=== PATIENT | male | born 1970 | race Hispanic/Latino ===

== ENCOUNTER → 2017-08-03 | Outpatient (CLI) | payer OTHER ==
[~2017-08-03] MED LIST: ACET-66 PO; AMOX500T2 PO; ESCI10TA PO; TAMS0.4C32 PO
== END | disposition home or self-care (01) ==
LOC: RAH 13:08
PROVIDERS: ATTEND Family Medicine
DX: M48.07 Spinal stenosis, lumbosacral region (principal); M51.27 Other intervertebral disc displacement, lumbosacral region
CPT/HCPCS: 72148

== ENCOUNTER 2017-10-12 06:24 | Day surgery (SDC) | payer OTHER ==
[2017-10-06 09:57] VITALS: BP 122/71
[2017-10-12] VITALS (27 sets, daily range): BP systolic 108–151; BP diastolic 63–90
[~2017-10-12] VITALS: Ht 170.2 cm; Wt 96.8 kg
[~2017-10-12 06:24] MED LIST changes: -ACET-66 PO; -AMOX500T2 PO; -TAMS0.4C32 PO
[2017-10-12] MEDS ORDERED: LACTATED RINGERS 1000ML 1,000 ML IV ONE (07:01)
[2017-10-12] MEDS ORDERED: LIDOCAINE HCL/EPINEPHRINE 50 ML VIAL IJ ONE (07:13)
[2017-10-12] MEDS ORDERED: BUPIVACAINE/PF 0.25% 10ML VIAL IJ ONE (07:14)
[2017-10-12] MEDS ORDERED: BACITRACIN 28.4 GM OINT TP ONE (07:14)
[2017-10-12] MEDS ORDERED: MIDAZOLAM HCL 1 MG/ML 2ML VIAL ONE ×2 (07:48→07:59)
[2017-10-12] MEDS ORDERED: LIDOCAINE PF 2% 5ML ABBOJECT ONE (07:59)
[2017-10-12] MEDS ORDERED: GLYCOPYRROLATE 0.2 MG/ML 5 ML VIAL ONE ×2 (07:59→08:46)
[2017-10-12] MEDS ORDERED: DEXAMETHASONE SOD PHOSPHATE 10MG/ML 1ML VIAL ONE ×2 (07:59→08:46)
[2017-10-12] MEDS ORDERED: PROPOFOL 10 MG/ML 20ML VIAL IV ONE ×2 (07:59→08:21)
[2017-10-12] MEDS ORDERED: OXYMETAZOLINE HCL SPRAY 15 ML BOTTLE ONE (08:04)
[2017-10-12] MEDS ORDERED: ROCURONIUM BROMIDE 10MG/1ML 5ML VL ONE (08:05)
[2017-10-12] MEDS ORDERED: FENTANYL CITRATE PF 50 MCG/1 ML 5ML AMP IV ONE (08:11)
[2017-10-12] MEDS ORDERED: NEOSTIGMINE METHYLSULFATE 1MG/ML IV ONE (08:46)
[2017-10-12] MEDS ORDERED: ONDANSETRON HCL MDV 20ML 2 MG/ML VIAL ONE (08:46)
[2017-10-12] MEDS ORDERED: MEPERIDINE-PF 25 MG/ML SYG ONE (09:20)
[2017-10-12] MEDS ORDERED: MORPHINE SULFATE 4 MG/1ML SYG IV SCH (10:45)
[2017-10-12] MEDS ORDERED: MORPHINE SULFATE 2 MG/ML 1ML SYG IVP SCH (11:00)
[2017-10-12] MEDS ORDERED: ACET-66 PO ×2 (11:17)
[2017-10-12] MEDS ORDERED: AMOX500T2 PO ×2 (11:18)
== END 2017-10-12 12:44 | disposition home or self-care (01) ==
LOC: DAH 06:24
PROVIDERS: ATTEND Otolaryngology Plastic Surgery within the Head & Neck
DX: J35.01 Chronic tonsillitis (principal); J34.3 Hypertrophy of nasal turbinates
CPT/HCPCS: 30930; 42821; 88304; A4649; J1030; J1100 ×2; J2001; J2175; J2250 ×2; J2704 ×2; J2710; J3010; J3490 ×4; J7030; J7120

== ENCOUNTER 2017-10-22 10:55 | Emergency (ER) | payer OTHER ==
[~2017-10-22 10:55] MED LIST changes: +ACET-66 PO; +AMOX500T2 PO
[2017-10-22 11:43] LABS: BASOPHILS % (AUTO) 0.7 % (0.0-5.0); EOSINOPHILS % (AUTO) 0.5 % (0.0-8.0); HEMATOCRIT 40.2 % (42-54); LYMPHOCYTES % (AUTO) 16.2 % (21.0-51.0); MEAN CORPUSCULAR HEMOGLOBIN 31.1 pg (27.0-33.0); MEAN CORPUSCULAR HGB CONC 34.9 g/dL (32.0-36.0); MONOCYTES % (AUTO) 9.6 % (3.0-13.0); PLATELET COUNT (AUTO) 304 K/uL (130-400); RED BLOOD CELL COUNT(AUTO) 4.52 MIL/uL (4.50-6.20); RED CELL DISTRIBUTION WIDTH 12.1 % (11.0-15.5); WHITE BLOOD COUNT (AUTO) 7.4 K/uL (4.8-10.8)
[2017-10-22 11:52] LABS: CREATININE 1.2 mg/dL (0.5-1.5); POTASSIUM 3.5 mmol/L (3.5-5.1)
[2017-10-22 11:57] LABS: ALBUMIN 3.8 g/dL (3.5-5.0); BILIRUBIN,DIRECT 0.1 mg/dL (0.0-0.3); BILIRUBIN,TOTAL 0.6 mg/dL (0.2-1.0)
[2017-10-22] MEDS ORDERED: SODIUM CHLORIDE 0.9% 1000ML 1,000 ML IV ONE (12:16)
[2017-10-22] MEDS ORDERED: TAMSULOSIN HCL 0.4 MG CAP.ER.24H ONE (12:46)
[2017-10-22] MEDS ORDERED: KETOROLAC TROMETHAMINE 30MG/ML ONE (12:47)
[2017-10-22 13:07] LABS: APPEARANCE,URINE Clear (CLEAR); BILIRUBIN,URINE Negative (NEGATIVE); COLOR,URINE Yellow (YELLOW); GLUCOSE, URINE (UA) Negative (NEGATIVE); KETONES,URINE Negative (NEGATIVE); LEUKOCYTE ESTERASE ,URINE Negative (NEGATIVE); NITRATE,URINE Negative (NEGATIVE); OCCULT BLOOD,URINE Trace (NEGATIVE); PH,URINE 5.5 (5.0-8.0); PROTEIN,URINE Negative (NEGATIVE); UROBILINOGEN,URINE 0.2 mg/dL (0.2-1.0)
[2017-10-22 13:26] LABS: BACTERIA,URINE Rare /HPF (None Seen); SQUAMOUS EPITHELIAL CELL,UR Rare /HPF (0-2)
[2017-10-25] MEDS ORDERED: TAMS0.4C32 PO (21:58)
== END 2017-10-22 14:03 | disposition home or self-care (01) ==
LOC: EDH 10:55
DX: N13.2 Hydronephrosis with renal and ureteral calculous obstruction (principal); K59.00 Constipation, unspecified; Z98.890 Other specified postprocedural states; Z79.899 Other long term (current) drug therapy
CPT/HCPCS: 36415; 74176; 80048; 80076; 81001; 83690; 85025; 96361; 96374; 99285; J1885; J7030

== ENCOUNTER 2017-10-25 13:35 | Inpatient (IN) | payer OTHER ==
[~2017-10-25] VITALS: Ht 167.6 cm; Wt 92.9 kg
[2017-10-25 14:07] LABS: APPEARANCE,URINE Clear (CLEAR); BILIRUBIN,URINE Negative (NEGATIVE); COLOR,URINE Dark Yellow (YELLOW); GLUCOSE, URINE (UA) Negative (NEGATIVE); KETONES,URINE 40 mg/dL (NEGATIVE); LEUKOCYTE ESTERASE ,URINE Trace (NEGATIVE); NITRATE,URINE Negative (NEGATIVE); OCCULT BLOOD,URINE Trace (NEGATIVE); PROTEIN,URINE Negative (NEGATIVE); UROBILINOGEN,URINE 0.2 mg/dL (0.2-1.0)
[2017-10-25 14:09] LABS: BASOPHILS % (AUTO) 0.2 % (0.0-5.0); EOSINOPHILS % (AUTO) 0.3 % (0.0-8.0); HEMATOCRIT 38.6 % (42-54); LYMPHOCYTES % (AUTO) 10.2 % (21.0-51.0); MEAN CORPUSCULAR HEMOGLOBIN 31.9 pg (27.0-33.0); MEAN CORPUSCULAR HGB CONC 35.9 g/dL (32.0-36.0); MEAN CORPUSCULAR VOLUME 88.7 fL (79-99); MONOCYTES % (AUTO) 5.7 % (3.0-13.0); NEUTROPHILS % (AUTO) 83.6 % (40.0-77.0); NUCLEATED RED BLOOD CELLS 0.1 % (0.0-0.19); PLATELET COUNT (AUTO) 343 K/uL (130-400); RED BLOOD CELL COUNT(AUTO) 4.35 MIL/uL (4.50-6.20); RED CELL DISTRIBUTION WIDTH 12.2 % (11.0-15.5); WHITE BLOOD COUNT (AUTO) 9.4 K/uL (4.8-10.8)
[2017-10-25 14:14] LABS: BACTERIA,URINE Rare /HPF (None Seen); RBC,URINE 0-1 /HPF (0-1); SQUAMOUS EPITHELIAL CELL,UR Rare /HPF (0-2)
[2017-10-25] MEDS ORDERED: ONDANSETRON HCL MDV 20ML 2 MG/ML VIAL ONE (14:16)
[2017-10-25] MEDS ORDERED: SODIUM CHLORIDE 0.9% 1000ML 1,000 ML IV ONE ×2 (14:17→14:53)
[2017-10-25 14:25] LABS: CREATININE 1.4 mg/dL (0.5-1.5); POTASSIUM 3.8 mmol/L (3.5-5.1)
[2017-10-25 14:31] LABS: ALBUMIN 3.8 g/dL (3.5-5.0); BILIRUBIN,TOTAL 0.4 mg/dL (0.2-1.0); TOTAL PROTEIN, SERUM 8.3 g/dL (6.0-8.3)
[2017-10-25] MEDS ORDERED: PROMETHAZINE HCL 25 MG/ML 1ML AMPULE IM ONE (14:53)
[2017-10-25] MEDS ORDERED: FAMOTIDINE 20MG TAB 20 MG TAB ONE (14:53)
[2017-10-25] MEDS ORDERED: KETOROLAC TROMETHAMINE 30MG/ML ONE (14:56)
[2017-10-25 19:20] VITALS: BP 135/87
[2017-10-25] MEDS: DEXTROSE 5 %-0.45 % NACL 1,000 ML IV SCH (20:38)
[2017-10-25] MEDS: ONDANSETRON HCL MDV 20ML 2 MG/ML VIAL IVP PRN (21:52)
[2017-10-25] MEDS: HYDROMORPHONE 1 MG/1 ML AMP IVP PRN (21:53)
[2017-10-25] MEDS ORDERED: TAMS0.4C32 PO ×2 (21:58)
[2017-10-26 00:09] VITALS: BP 126/77
[2017-10-26 03:47] VITALS: BP 122/82
[2017-10-26] MEDS: DEXTROSE 5 %-0.45 % NACL 1,000 ML IV SCH ×2 (04:52→14:40)
[2017-10-26 04:58] LABS: BASOPHILS % (AUTO) 0.2 % (0.0-5.0); EOSINOPHILS % (AUTO) 0.1 % (0.0-8.0); LYMPHOCYTES % (AUTO) 12.6 % (21.0-51.0); MEAN CORPUSCULAR HEMOGLOBIN 30.6 pg (27.0-33.0); MEAN CORPUSCULAR HGB CONC 34.6 g/dL (32.0-36.0); MEAN CORPUSCULAR VOLUME 88.6 fL (79-99); MONOCYTES % (AUTO) 7.2 % (3.0-13.0); NEUTROPHILS % (AUTO) 79.9 % (40.0-77.0); PLATELET COUNT (AUTO) 314 K/uL (130-400); RED BLOOD CELL COUNT(AUTO) 4.18 MIL/uL (4.50-6.20); RED CELL DISTRIBUTION WIDTH 11.8 % (11.0-15.5); WHITE BLOOD COUNT (AUTO) 12.3 K/uL (4.8-10.8)
[2017-10-26 05:09] LABS: ALBUMIN 3.2 g/dL (3.5-5.0); BILIRUBIN,TOTAL 0.2 mg/dL (0.2-1.0); CREATININE 1.2 mg/dL (0.5-1.5); POTASSIUM 4.1 mmol/L (3.5-5.1); TOTAL PROTEIN, SERUM 7.2 g/dL (6.0-8.3)
[2017-10-26 07:36] VITALS: BP 122/81
[2017-10-26] MEDS ORDERED: SODIUM CHLORIDE 0.9% 10 ML VIAL ONE (09:33)
[2017-10-26] MEDS: PANTOPRAZOLE 40 MG/VIAL IVP SCH (09:45)
[2017-10-26] MEDS: ONDANSETRON HCL MDV 20ML 2 MG/ML VIAL IVP PRN ×3 (09:46→20:13)
[2017-10-26 10:56] VITALS: BP 129/72
[2017-10-26] MEDS: HYDROMORPHONE 1 MG/1 ML AMP IVP PRN (15:39)
[2017-10-26 16:25] VITALS: BP 122/78
[2017-10-26 20:00] VITALS: BP 131/84
[2017-10-26] MEDS: CEFTRIAXONE SODIUM 1 GM IVP SCH (20:05)
[2017-10-26] MEDS: KETOROLAC TROMETHAMINE 30MG/ML IV PRN (20:05)
[2017-10-26] MEDS ORDERED: TAMSULOSIN HCL 0.4 MG CAP.ER.24H PO SCH (21:00)
[2017-10-26] MEDS: TAMSULOSIN HCL 0.4 MG CAP.ER.24H PO SCH (21:00)
[2017-10-26] MEDS ORDERED: CEFTRIAXONE SODIUM 1 GM IVP SCH (21:00)
[2017-10-26] MEDS ORDERED: CEFTRIAXONE 1GM/D5W 50ML 50 ML IV SCH (22:00)
[2017-10-27] VITALS (29 sets, daily range): BP systolic 108–139; BP diastolic 59–87
[2017-10-27] MEDS: DEXTROSE 5 %-0.45 % NACL 1,000 ML IV SCH ×3 (02:16→10:31)
[2017-10-27] MEDS: ONDANSETRON HCL MDV 20ML 2 MG/ML VIAL IVP PRN ×4 (02:19→21:54)
[2017-10-27] MEDS: KETOROLAC TROMETHAMINE 30MG/ML IV PRN ×2 (02:19→20:10)
[2017-10-27 05:15] LABS: HEMATOCRIT 36.6 % (42-54); MEAN CORPUSCULAR HEMOGLOBIN 31.2 pg (27.0-33.0); MEAN CORPUSCULAR VOLUME 89.1 fL (79-99); NUCLEATED RED BLOOD CELLS 0.2 % (0.0-0.19); PLATELET COUNT (AUTO) 361 K/uL (130-400); RED CELL DISTRIBUTION WIDTH 12.1 % (11.0-15.5); WHITE BLOOD COUNT (AUTO) 10.3 K/uL (4.8-10.8)
[2017-10-27 05:32] LABS: ALBUMIN 3.1 g/dL (3.5-5.0); BILIRUBIN,TOTAL 0.2 mg/dL (0.2-1.0); CREATININE 1.2 mg/dL (0.5-1.5); POTASSIUM 3.9 mmol/L (3.5-5.1); TOTAL PROTEIN, SERUM 7.3 g/dL (6.0-8.3)
[2017-10-27 05:38] LABS: BAND NEUTROPHILS % (MANUAL) 3 % (0-2); EOSINOPHILS % (MANUAL) 1 % (1-6); LYMPHOCYTES % (MANUAL) 17 % (22-44); MAN.DIFF COMMENT-IMPRESSION MANUAL DIFFERENTIAL; MONOCYTES % (MANUAL) 8 % (2-9); PLATELET MORPHOLOGY COMMENT ADEQUATE; SEGMENTED NEUTROPHILS % 71 % (40-70)
[2017-10-27] MEDS: PANTOPRAZOLE 40 MG/VIAL IVP SCH (10:24)
[2017-10-27] MEDS ORDERED: ALPRAZOLAM 0.5 MG TABLET PO PRN (11:30)
[2017-10-27] MEDS: LORAZEPAM 2 MG/ML 1 ML VIAL IVP PRN ×2 (11:45→21:54)
[2017-10-27] MEDS ORDERED: LACTATED RINGERS 1000ML 1,000 ML IV ONE (12:56)
[2017-10-27] MEDS ORDERED: MIDAZOLAM HCL 1 MG/ML 2ML VIAL ONE ×2 (14:20→15:06)
[2017-10-27] MEDS ORDERED: FENTANYL CITRATE PF 50 MCG/1 ML 2ML VIAL ONE (14:20)
[2017-10-27] MEDS ORDERED: ISOVUE-370 50ML VIAL IV ONE (14:23)
[2017-10-27] MEDS: TAMSULOSIN HCL 0.4 MG CAP.ER.24H PO SCH (20:10)
[2017-10-27] MEDS: CEFTRIAXONE SODIUM 1 GM IVP SCH (20:11)
[2017-10-28 00:05] VITALS: BP 111/66
[2017-10-28 04:25] VITALS: BP 109/64
[2017-10-28 05:31] LABS: HEMATOCRIT 37.8 % (42-54); MEAN CORPUSCULAR HEMOGLOBIN 31.3 pg (27.0-33.0); MEAN CORPUSCULAR HGB CONC 34.9 g/dL (32.0-36.0); MEAN CORPUSCULAR VOLUME 89.6 fL (79-99); PLATELET COUNT (AUTO) 366 K/uL (130-400); RED BLOOD CELL COUNT(AUTO) 4.21 MIL/uL (4.50-6.20); RED CELL DISTRIBUTION WIDTH 12.5 % (11.0-15.5); WHITE BLOOD COUNT (AUTO) 8.7 K/uL (4.8-10.8)
[2017-10-28 05:44] LABS: CREATININE 1.2 mg/dL (0.5-1.5); POTASSIUM 3.7 mmol/L (3.5-5.1)
[2017-10-28 07:53] VITALS: BP 128/75
[2017-10-28] MEDS: DEXTROSE 5 %-0.45 % NACL 1,000 ML IV SCH (08:47)
[2017-10-28] MEDS ORDERED: PANTOPRAZOLE SODIUM 40 MG TABLET.DR PO SCH (09:00)
[2017-10-28] MEDS: ONDANSETRON HCL MDV 20ML 2 MG/ML VIAL IVP PRN (10:21)
[2017-10-28 11:20] VITALS: BP 123/68
== END 2017-10-28 14:19 | disposition home or self-care (01) | DRG 694 ==
LOC: EDH 13:35 → OBSVTOIN 16:20 → EDHIP 16:20 → 4BH 18:35
PROVIDERS: ADMIT Internal Medicine; ATTEND Internal Medicine
PROC: 0T778DZ Dilation of Left Ureter with Intraluminal Device, Via Natural or Artificial Opening Endoscopic (ICD-10-PCS; principal; 2017-10-27 15:09)
PROC: BT1F1ZZ Fluoroscopy of Left Kidney, Ureter and Bladder using Low Osmolar Contrast (ICD-10-PCS; 2017-10-27 15:09)
DX: N20.2 Calculus of kidney with calculus of ureter (principal); E86.0 Dehydration; I10 Essential (primary) hypertension
CPT/HCPCS: 36415; 74176; 74420; 76770; 80048; 80053; 81001; 82360; 83690; 85025; 85027; 88300; 93005; A4218; A4344; A4354; C1758; C1769; C2617; C9113; J0696; J1170; J1885; J2060; J2250; J2550; J3010; J7030; J7042; J7120; Q9967

== ENCOUNTER 2017-12-22 06:00 | Observation (INO) | payer OTHER ==
[2017-12-18 10:42] VITALS: BP 115/76
[2017-12-18 11:27] LABS: HEMATOCRIT 39.4 % (42-54); MEAN CORPUSCULAR HEMOGLOBIN 31.1 pg (27.0-33.0); MEAN CORPUSCULAR HGB CONC 34.7 g/dL (32.0-36.0); MEAN CORPUSCULAR VOLUME 89.7 fL (79-99); NUCLEATED RED BLOOD CELLS 0.1 % (0.0-0.19); PLATELET COUNT (AUTO) 327 K/uL (130-400); RED BLOOD CELL COUNT(AUTO) 4.39 MIL/uL (4.50-6.20); RED CELL DISTRIBUTION WIDTH 12.5 % (11.0-15.5); WHITE BLOOD COUNT (AUTO) 5.9 K/uL (4.8-10.8)
[2017-12-18 11:28] LABS: APPEARANCE,URINE Cloudy (CLEAR); BILIRUBIN,URINE Negative (NEGATIVE); COLOR,URINE Yellow (YELLOW); GLUCOSE, URINE (UA) Negative (NEGATIVE); KETONES,URINE Negative (NEGATIVE); LEUKOCYTE ESTERASE ,URINE Small (NEGATIVE); NITRATE,URINE Negative (NEGATIVE); OCCULT BLOOD,URINE Large (NEGATIVE); PROTEIN,URINE POS 2+ (NEGATIVE); UROBILINOGEN,URINE 0.2 mg/dL (0.2-1.0)
[2017-12-18 11:45] LABS: CREATININE 0.8 mg/dL (0.5-1.5); POTASSIUM 4.3 mmol/L (3.5-5.1)
[2017-12-18 11:50] LABS: INR 0.99 (0.85-1.15); PARTIAL THROMBOPLASTIN TIME 28.6 SEC (26.3-35.5); PROTHROMBIN TIME 10.4 SEC (9.6-11.6)
[2017-12-18 11:55] LABS: BACTERIA,URINE Moderate /HPF (None Seen)
[2017-12-18 11:56] LABS: RBC,URINE 26-50 /HPF (0-1)
[2017-12-22] VITALS (27 sets, daily range): BP systolic 99–139; BP diastolic 33–96
[~2017-12-22] VITALS: Ht 170.2 cm; Wt 93.1 kg
[~2017-12-22 06:00] MED LIST changes: -ACET-66 PO; -AMOX500T2 PO; -ESCI10TA PO; +TAMS0.4C32 PO
[2017-12-22] MEDS ORDERED: LACTATED RINGERS 1000ML 1,000 ML IV ONE (06:21)
[2017-12-22] MEDS: CEFAZOLIN SODIUM 1 GM VIAL ONE ×2 (06:30→07:35)
[2017-12-22] MEDS ORDERED: GLYCOPYRROLATE 0.2 MG/ML 5 ML VIAL ONE (06:59)
[2017-12-22] MEDS ORDERED: ONDANSETRON HCL 4 MG/2 ML VIAL ONE (06:59)
[2017-12-22] MEDS ORDERED: NEOSTIGMINE 5MG/5ML SYR IV ONE (06:59)
[2017-12-22] MEDS ORDERED: LIDOCAINE PF 2% 5ML ABBOJECT ONE ×2 (06:59→07:30)
[2017-12-22] MEDS ORDERED: DEXAMETHASONE SOD PHOSPHATE 10MG/ML 1ML VIAL ONE (06:59)
[2017-12-22] MEDS ORDERED: MIDAZOLAM HCL 1 MG/ML 2ML VIAL ONE (07:00)
[2017-12-22] MEDS ORDERED: FENTANYL CITRATE PF 50 MCG/1 ML 2ML VIAL ONE ×2 (07:00→07:31)
[2017-12-22] MEDS ORDERED: PROPOFOL 10 MG/ML 20ML VIAL IV ONE ×2 (07:00→07:45)
[2017-12-22] MEDS ORDERED: ROCURONIUM BROMIDE 10MG/1ML 5ML VL ONE ×2 (07:02→07:07)
[2017-12-22] MEDS ORDERED: ISOVUE-370 50ML VIAL IV ONE ×2 (07:38→07:58)
[2017-12-22] MEDS ORDERED: CEFAZOLIN SODIUM 1 GM VIAL IVP ONE (08:00)
[2017-12-22] MEDS ORDERED: LACTATED RINGERS 1000ML 1,000 ML IV SCH (08:00)
[2017-12-22] MEDS ORDERED: GENTAMICIN SULFATE 240 MG in SODIUM CHLORIDE 0.9% 100 ML IV ONE (08:00)
[2017-12-22] MEDS: MEPERIDINE-PF 75 MG/ML SYG IM PRN ×2 (10:28→18:04)
[2017-12-22] MEDS ORDERED: SODIUM CHLORIDE 0.9% 1000ML 1,000 ML IV SCH (10:30)
[2017-12-22] MEDS ORDERED: ACETAMINOPHEN 325 MG TAB PO PRN (10:30)
[2017-12-22] MEDS ORDERED: ONDANSETRON HCL 4 MG/2 ML VIAL IVP PRN (10:30)
[2017-12-22] MEDS ORDERED: ACETAMINOPHEN-CODEINE 300/30MG TAB PO PRN (10:30)
[2017-12-22] MEDS ORDERED: CEFAZOLIN SODIUM 1 GM VIAL IVP SCH (16:00)
[2017-12-22] MEDS ORDERED: POLYCITRA PO SCH (17:00)
[2017-12-22] MEDS ORDERED: CITRIC ACID/SODIUM CITRATE 30 ML UDCUP PO ONE (18:20)
== END 2017-12-22 19:20 | disposition home or self-care (01) ==
LOC: DAH 06:00 → DAHIP 06:01 → DAH 06:01 → 4BH 09:21
PROVIDERS: ADMIT Urology; ATTEND Urology
DX: N20.2 Calculus of kidney with calculus of ureter (principal); Z79.899 Other long term (current) drug therapy
CPT/HCPCS: 36415; 52320; 52332; 71046; 74420; 80048; 81001; 82360; 85027; 85610; 85730; 87088; 88300; 93005; 96372; 96374; A4218 ×2; A4358; A4930; C1751; C1758; C1769; C2617; G0378 ×13; J0690 ×2; J1100; J1580; J2001 ×2; J2175 ×2; J2250; J2405; J2704 ×2; J2710; J3010 ×2; J3490 ×3; J7120; Q9967

== ENCOUNTER → 2018-01-04 | Outpatient (CLI) | payer OTHER ==
[~2018-01-04] MED LIST changes: +IOPAMIDOL-370 100 ML VIAL IV ONE
== END | disposition home or self-care (01) ==
LOC: RAH 08:02
PROVIDERS: ATTEND Urology
DX: N13.39 Other hydronephrosis (principal); N13.4 Hydroureter
CPT/HCPCS: 36415; 74400; 82565; 84520; Q9967

== ENCOUNTER → 2019-02-01 | Outpatient (CLI) | payer OTHER ==
[~2019-02-01] MED LIST changes: -IOPAMIDOL-370 100 ML VIAL IV ONE
[2019-02-01 07:53] LABS: BASOPHILS % (AUTO) 0.4 % (0.0-5.0); EOSINOPHILS % (AUTO) 0.9 % (0.0-8.0); HEMATOCRIT 42.1 % (42-54); LYMPHOCYTES % (AUTO) 31.5 % (21.0-51.0); MEAN CORPUSCULAR HEMOGLOBIN 31.4 pg (27.0-33.0); MEAN CORPUSCULAR VOLUME 89.8 fL (79-99); MONOCYTES % (AUTO) 7.6 % (3.0-13.0); NEUTROPHILS % (AUTO) 59.6 % (40.0-77.0); NUCLEATED RED BLOOD CELLS 0.1 % (0.0-0.19); PLATELET COUNT (AUTO) 313 K/uL (130-400); RED BLOOD CELL COUNT(AUTO) 4.69 MIL/uL (4.50-6.20); RED CELL DISTRIBUTION WIDTH 12.5 % (11.0-15.5); WHITE BLOOD COUNT (AUTO) 7.2 K/uL (4.8-10.8)
[2019-02-01 07:58] LABS: HEMOGLOBIN A1C 5.9 % (4.0-6.0)
[2019-02-01 08:31] LABS: ALBUMIN 3.9 g/dL (3.5-5.0); BILIRUBIN,TOTAL 0.4 mg/dL (0.2-1.0); CREATININE 0.8 mg/dL (0.5-1.5); MAGNESIUM 1.8 mg/dL (1.80-2.40); THYROID STIMULATING HORMONE 2.46 uIU/mL (0.36-3.74); TOTAL PROTEIN, SERUM 7.8 g/dL (6.0-8.3)
== END | disposition home or self-care (01) ==
LOC: LAB 07:18
PROVIDERS: ATTEND Family Medicine
DX: E78.5 Hyperlipidemia, unspecified (principal); E03.9 Hypothyroidism, unspecified; R53.83 Other fatigue; R73.09 Other abnormal glucose; E55.9 Vitamin D deficiency, unspecified; E53.8 Deficiency of other specified B group vitamins
CPT/HCPCS: 36415; 80053; 80061; 82306; 82607; 82627; 83036; 83735; 84153; 84402; 84403; 84439; 84443; 84481; 85025; 86376

== ENCOUNTER → 2019-04-19 | Outpatient (CLI) | payer OTHER ==
[2019-04-19 09:53] LABS: BASOPHILS % (AUTO) 0.4 % (0.0-5.0); HEMATOCRIT 39.9 % (42-54); LYMPHOCYTES % (AUTO) 37.8 % (21.0-51.0); MEAN CORPUSCULAR HEMOGLOBIN 31.7 pg (27.0-33.0); MEAN CORPUSCULAR HGB CONC 35.1 g/dL (32.0-36.0); MEAN CORPUSCULAR VOLUME 90.2 fL (79-99); MONOCYTES % (AUTO) 6.7 % (3.0-13.0); NEUTROPHILS % (AUTO) 54.1 % (40.0-77.0); NUCLEATED RED BLOOD CELLS 0.1 % (0.0-0.19); PLATELET COUNT (AUTO) 303 K/uL (130-400); RED BLOOD CELL COUNT(AUTO) 4.42 MIL/uL (4.50-6.20); RED CELL DISTRIBUTION WIDTH 12.5 % (11.0-15.5); WHITE BLOOD COUNT (AUTO) 6.1 K/uL (4.8-10.8)
[2019-04-19 10:26] LABS: HEMOGLOBIN A1C 5.7 % (4.0-6.0)
[2019-04-19 10:49] LABS: ALBUMIN 3.8 g/dL (3.5-5.0); BILIRUBIN,TOTAL 0.2 mg/dL (0.2-1.0); CREATININE 0.8 mg/dL (0.5-1.5); MAGNESIUM 1.8 mg/dL (1.80-2.40); POTASSIUM 3.7 mmol/L (3.5-5.1); THYROID STIMULATING HORMONE 1.02 uIU/mL (0.36-3.74); TOTAL PROTEIN, SERUM 7.6 g/dL (6.0-8.3)
== END | disposition home or self-care (01) ==
LOC: LAB 07:38
PROVIDERS: ATTEND Family Medicine
DX: I10 Essential (primary) hypertension (principal); Z79.899 Other long term (current) drug therapy
CPT/HCPCS: 36415; 80053; 80061; 82306; 82607; 83036; 83735; 84153; 84154; 84402; 84403; 84439; 84443; 84481; 85025; 86376

== ENCOUNTER 2020-01-23 14:56 | Emergency (ER) | payer OTHER | END 2020-01-23 16:33 | disposition home or self-care (01) | LOC: EDH 14:56 | DX: U07.1 COVID-19 (principal); R06.00 Dyspnea, unspecified | CPT/HCPCS: 36415; 71045; 87804 ×2; 99284; U0003 ==

== ENCOUNTER 2020-02-01 12:56 | Emergency (ER) | payer OTHER ==
[2020-02-01] MEDS ORDERED: ACETAMINOPHEN EXTRA STRENGTH 500 MG TABLET ONE (13:11)
[2020-02-01 13:17] LABS: BASOPHILS % (AUTO) 0.1 % (0.0-5.0); HEMATOCRIT 43.5 % (42-54); LYMPHOCYTES % (AUTO) 11.3 % (21.0-51.0); MEAN CORPUSCULAR HEMOGLOBIN 30.2 pg (27.0-33.0); MEAN CORPUSCULAR VOLUME 88.8 fL (79-99); NEUTROPHILS % (AUTO) 82.1 % (40.0-77.0); PLATELET COUNT (AUTO) 258 K/uL (130-400); RED CELL DISTRIBUTION WIDTH 12.1 % (11.0-15.5); WHITE BLOOD COUNT (AUTO) 10.9 K/uL (4.8-10.8)
[2020-02-01 13:48] LABS: POTASSIUM 3.6 mmol/L (3.5-5.1)
[2020-02-01 13:52] LABS: ALBUMIN 3.6 g/dL (3.5-5.0); BILIRUBIN,TOTAL 0.4 mg/dL (0.2-1.0)
[2020-02-01] MEDS ORDERED: DEXAMETHASONE SOD PHOSPHATE 10MG/ML 1ML VIAL ONE (14:32)
[2020-02-01] MEDS ORDERED: ONDANSETRON HCL 4 MG/2 ML VIAL ONE (15:42)
== END 2020-02-01 16:14 | disposition home or self-care (01) ==
LOC: EDH 12:56
DX: U07.1 COVID-19 (principal); J12.89 Other viral pneumonia
CPT/HCPCS: 36415; 71045; 80053; 82550; 82728; 83880; 84484; 85025; 85378; 86140; 87040 ×2; 93005; 96374; 96375; 99285; J1100; J2405

== ENCOUNTER → 2020-05-10 | Outpatient (CLI) | payer OTHER ==
[2020-05-10 14:08] LABS: BASOPHILS % (AUTO) 0.4 % (0.0-5.0); EOSINOPHILS % (AUTO) 1.7 % (0.0-8.0); HEMATOCRIT 44.8 % (42-54); LYMPHOCYTES % (AUTO) 37.4 % (21.0-51.0); MEAN CORPUSCULAR HEMOGLOBIN 30.4 pg (27.0-33.0); MEAN CORPUSCULAR HGB CONC 33.5 g/dL (32.0-36.0); MEAN CORPUSCULAR VOLUME 90.7 fL (79-99); MONOCYTES % (AUTO) 6.7 % (3.0-13.0); NEUTROPHILS % (AUTO) 53.5 % (40.0-77.0); PLATELET COUNT (AUTO) 274 K/uL (130-400); RED BLOOD CELL COUNT(AUTO) 4.94 MIL/uL (4.50-6.20); RED CELL DISTRIBUTION WIDTH 11.9 % (11.0-15.5); WHITE BLOOD COUNT (AUTO) 7.5 K/uL (4.8-10.8)
[2020-05-10 14:35] LABS: FERRITIN 747 ng/mL (30-400)
[2020-05-10 14:44] LABS: ALBUMIN 4.1 g/dL (3.5-5.0); BILIRUBIN,TOTAL 0.6 mg/dL (0.2-1.0); CREATININE 0.8 mg/dL (0.5-1.5); THYROID STIMULATING HORMONE 0.83 uIU/mL (0.36-3.74)
== END | disposition home or self-care (01) ==
LOC: RAH 12:53
PROVIDERS: ATTEND Internal Medicine
DX: R53.83 Other fatigue (principal); R06.00 Dyspnea, unspecified
CPT/HCPCS: 36415; 71046; 80053; 80061; 82728; 84439; 84443; 84484; 85025; 85378; 86140; 87520; 93005

== ENCOUNTER → 2021-02-18 | Outpatient (CLI) | payer OTHER ==
[2021-02-18 08:50] LABS: HEMOGLOBIN A1C 5.9 % (4.0-6.0)
[2021-02-18 09:02] LABS: ALBUMIN 4.2 g/dL (3.5-5.0); BILIRUBIN,DIRECT 0.1 mg/dL (0.0-0.3); BILIRUBIN,TOTAL 0.4 mg/dL (0.2-1.0); CREATININE 0.8 mg/dL (0.5-1.5); THYROID STIMULATING HORMONE 1.77 uIU/mL (0.36-3.74)
== END | disposition home or self-care (01) ==
LOC: LAB 02-12 14:59
PROVIDERS: ATTEND Internal Medicine
DX: R53.83 Other fatigue (principal); R79.89 Other specified abnormal findings of blood chemistry; M06.9 Rheumatoid arthritis, unspecified
CPT/HCPCS: 36415; 80053; 80076; 82533; 83036; 84439; 84443; 86431

== ENCOUNTER 2021-11-14 08:05 | Emergency (ER) | payer OTHER ==
[~2021-11-14] VITALS: Ht 170.2 cm; Wt 99.8 kg
[2021-11-14 08:37] LABS: APPEARANCE,URINE CLEAR (CLEAR); BILIRUBIN,URINE NEGATIVE (NEGATIVE); COLOR,URINE YELLOW (YELLOW); GLUCOSE, URINE (UA) NEGATIVE (NEGATIVE); KETONES,URINE NEGATIVE (NEGATIVE); LEUKOCYTE ESTERASE ,URINE NEGATIVE (NEGATIVE); NITRATE,URINE NEGATIVE (NEGATIVE); OCCULT BLOOD,URINE NEGATIVE (NEGATIVE); PH,URINE 5.5 (5.0-8.0); PROTEIN,URINE NEGATIVE (NEGATIVE); UROBILINOGEN,URINE 0.2 mg/dL (0.2-1.0)
[2021-11-14 08:39] LABS: BASOPHILS % (AUTO) 0.1 % (0.0-5.0); CREATININE 0.8 mg/dL (0.5-1.5); EOSINOPHILS % (AUTO) 1.6 % (0.0-8.0); HEMATOCRIT 50.1 % (42-54); LYMPHOCYTES % (AUTO) 37.1 % (21.0-51.0); MEAN CORPUSCULAR HEMOGLOBIN 29.7 pg (27.0-33.0); MEAN CORPUSCULAR HGB CONC 32.3 g/dL (32.0-36.0); MEAN CORPUSCULAR VOLUME 91.9 fL (79-99); MONOCYTES % (AUTO) 7.8 % (3.0-13.0); NEUTROPHILS % (AUTO) 52.8 % (40.0-77.0); PLATELET COUNT (AUTO) 273 K/uL (130-400); POTASSIUM 4.2 mmol/L (3.5-5.1); RED BLOOD CELL COUNT(AUTO) 5.45 MIL/uL (4.50-6.20)
[2021-11-14 08:40] LABS: BACTERIA,URINE Rare /HPF (None Seen); RBC,URINE None Seen /HPF (0-1); SQUAMOUS EPITHELIAL CELL,UR Rare /HPF (0-2); WBC,URINE 0-1 /HPF (0-1)
[2021-11-14 08:44] LABS: ALBUMIN 4.1 g/dL (3.5-5.0); BILIRUBIN,TOTAL 0.4 mg/dL (0.2-1.0); TOTAL PROTEIN, SERUM 8.1 g/dL (6.0-8.3)
[2021-11-14 09:10] LABS: CHOLESTEROL 231 mg/dL (<200); CREATINE KINASE, TOTAL 51 U/L (21-232); HDL CHOLESTEROL 53 mg/dL (29-71); LDL DIRECT 154 mg/dL (0-99); TRIGLYCERIDES 146 mg/dL (30-200)
[2021-11-14] MEDS ORDERED: ATOR10 PO (09:43)
[2021-11-14] MEDS ORDERED: FAMO20TA8 PO (09:46)
[2021-11-14] MEDS ORDERED: NAPR500T6 PO (09:46)
[2021-11-14 09:55] VITALS: BP 115/65
== END 2021-11-14 09:56 | disposition home or self-care (01) ==
LOC: EDH 08:05
DX: E78.00 Pure hypercholesterolemia, unspecified (principal); H53.8 Other visual disturbances
CPT/HCPCS: 36415; 70450; 80053; 80061; 81001; 82550; 85025

== ENCOUNTER → 2022-01-08 | Outpatient (CLI) | payer OTHER ==
[~2022-01-08] MED LIST changes: +ATOR10 PO; +FAMO20TA8 PO; +NAPR500T6 PO
[2022-01-08 09:55] LABS: BASOPHILS % (AUTO) 0.4 % (0.0-5.0); EOSINOPHILS % (AUTO) 1.8 % (0.0-8.0); HEMATOCRIT 44.3 % (42-54); LYMPHOCYTES % (AUTO) 37.7 % (21.0-51.0); MEAN CORPUSCULAR HEMOGLOBIN 30.3 pg (27.0-33.0); MEAN CORPUSCULAR HGB CONC 33.6 g/dL (32.0-36.0); MONOCYTES % (AUTO) 7.7 % (3.0-13.0); NEUTROPHILS % (AUTO) 52.3 % (40.0-77.0); PLATELET COUNT (AUTO) 292 K/uL (130-400); RED BLOOD CELL COUNT(AUTO) 4.92 MIL/uL (4.50-6.20); RED CELL DISTRIBUTION WIDTH 11.9 % (11.0-15.5); WHITE BLOOD COUNT (AUTO) 6.8 K/uL (4.8-10.8)
[2022-01-08 10:34] LABS: BILIRUBIN,TOTAL 0.3 mg/dL (0.2-1.0); CREATININE 0.7 mg/dL (0.5-1.5); POTASSIUM 3.9 mmol/L (3.5-5.1); T4 (THYROXINE) 9.2 ug/dL (4.7-13.3); THYROID STIMULATING HORMONE 1.71 uIU/mL (0.36-3.74); TOTAL PROTEIN, SERUM 7.7 g/dL (6.0-8.3)
== END | disposition home or self-care (01) ==
LOC: LAB 01-06 12:07
PROVIDERS: ATTEND Nurse Practitioner Family
DX: R53.83 Other fatigue (principal)
CPT/HCPCS: 36415; 80053; 80061; 82306; 82607; 82670; 84153; 84402; 84403; 84436; 84443; 84481; 85025; 86376

== ENCOUNTER → 2022-02-24 | Outpatient (CLI) | payer OTHER | END | disposition home or self-care (01) | LOC: SLP 20:44 | PROVIDERS: ATTEND Nurse Practitioner Family | DX: G47.33 Obstructive sleep apnea (adult) (pediatric) (principal) | CPT/HCPCS: 95810 ==

== ENCOUNTER → 2022-04-09 | Outpatient (CLI) | payer OTHER ==
[2022-04-09 08:29] LABS: THYROID STIMULATING HORMONE 1.61 uIU/mL (0.36-3.74)
== END | disposition home or self-care (01) ==
LOC: EDH 07:21
PROVIDERS: ATTEND Family Medicine
DX: E03.9 Hypothyroidism, unspecified (principal); R53.83 Other fatigue; R63.5 Abnormal weight gain
CPT/HCPCS: 36415; 82670; 84402; 84403; 84436; 84439; 84443; 84481; 86376

== ENCOUNTER → 2022-06-12 | Outpatient (CLI) | payer OTHER ==
[2022-06-12 07:45] LABS: HEMATOCRIT 49.5 % (42-54)
[2022-06-12 08:14] LABS: T4 (THYROXINE) 7.7 ug/dL (4.7-13.3); THYROID STIMULATING HORMONE 1.05 uIU/mL (0.36-3.74)
== END | disposition home or self-care (01) ==
LOC: LAB 10:00
PROVIDERS: ATTEND Nurse Practitioner Family
DX: E29.1 Testicular hypofunction (principal); R53.83 Other fatigue
CPT/HCPCS: 36415; 82670; 84402; 84403; 84436; 84439; 84443; 84481; 85014; 85018

== ENCOUNTER → 2023-05-07 | Outpatient (CLI) | payer OTHER ==
[2023-05-07 18:49] LABS: HEMATOCRIT 44.5 % (42-54); RED BLOOD CELL COUNT(AUTO) 4.86 MIL/uL (4.50-6.20); WHITE BLOOD COUNT (AUTO) 6.9 K/uL (4.8-10.8)
[2023-05-07 18:50] LABS: LYMPHOCYTES % (AUTO) 36.6 % (21.0-51.0); MEAN CORPUSCULAR HEMOGLOBIN 30.7 pg (27.0-33.0); MEAN CORPUSCULAR HGB CONC 33.5 g/dL (32.0-36.0); MEAN CORPUSCULAR VOLUME 91.6 fL (79-99); MONOCYTES % (AUTO) 5.8 % (3.0-13.0); NEUTROPHILS % (AUTO) 55.9 % (40.0-77.0); PLATELET COUNT (AUTO) 311 K/uL (130-400); RED CELL DISTRIBUTION WIDTH 11.9 % (11.0-15.5)
[2023-05-07 18:51] LABS: BASOPHILS % (AUTO) 0.3 % (0.0-5.0); IMMATURE GRANULOCYTE ABSOLUTE 0.03 K/uL (0-1); LYMPHOCYTES # (AUTO) 2.5 K/uL (1.0-4.8); MONOCYTES # (AUTO) 0.4 K/uL (0.1-1.0); NEUTROPHILS # (AUTO) 3.9 K/uL (1.8-7.7)
[2023-05-07 18:52] LABS: BASOPHILS # (AUTO) 0.02 K/uL (0.00-0.20); EOSINOPHILS # (AUTO) 0.07 K/uL (0.00-0.70)
[2023-05-07 19:00] LABS: ALBUMIN 4.3 g/dL (3.5-5.0); BILIRUBIN,TOTAL 0.4 mg/dL (0.2-1.0); CREATININE 0.9 mg/dL (0.5-1.5); POTASSIUM 4.3 mmol/L (3.5-5.1)
== END | disposition home or self-care (01) ==
LOC: LAB 16:14
PROVIDERS: ATTEND Family Medicine
DX: Z00.00 Encounter for general adult medical examination without abnormal findings (principal); Z12.5 Encounter for screening for malignant neoplasm of prostate; Z13.220 Encounter for screening for lipoid disorders; M54.59 Other low back pain; M51.16 Intervertebral disc disorders with radiculopathy, lumbar region
CPT/HCPCS: 36415; 80053; 80061; 84153; 84154; 85025

== ENCOUNTER → 2023-06-10 | Outpatient (CLI) | payer OTHER | END | disposition home or self-care (01) | LOC: RAH 08:41 | PROVIDERS: ATTEND Family Medicine | DX: M51.16 Intervertebral disc disorders with radiculopathy, lumbar region (principal); M43.17 Spondylolisthesis, lumbosacral region; M48.07 Spinal stenosis, lumbosacral region | CPT/HCPCS: 72148 ==

== ENCOUNTER 2023-07-14 11:05 | Emergency (ER) | payer OTHER ==
[~2023-07-14] VITALS: Ht 167.6 cm; Wt 97.5 kg
[2023-07-14 11:14] VITALS: BP 142/85; PULSE 70; RESP 20; O2SAT 96
[2023-07-14] MEDS ORDERED: TETANUS/DIPHTHERIA TOXOID [ADULT] 0.5 ML VIAL IM ONE (11:30)
== END 2023-07-14 12:33 | disposition home or self-care (01) ==
LOC: EDH 11:05
DX: S46.911A Strain of unspecified muscle, fascia and tendon at shoulder and upper arm level, right arm, initial encounter (principal); S20.219A Contusion of unspecified front wall of thorax, initial encounter; Z79.899 Other long term (current) drug therapy; W11.XXXA Fall on and from ladder, initial encounter; Y93.89 Activity, other specified; Y92.89 Other specified places as the place of occurrence of the external cause; Y99.8 Other external cause status
CPT/HCPCS: 71046; 73030; 90471; 90714

== ENCOUNTER 2023-10-06 15:15 | Emergency (ER) | payer OTHER ==
[~2023-10-06] VITALS: Ht 167.6 cm; Wt 99.8 kg
[2023-10-06 15:16] VITALS: BP 128/78; PULSE 81; RESP 16
[2023-10-06 15:29] LABS: SARS-CoV-2, RNA, NAAT NEGATIVE SARS CoV-2 (NEGATIVE)
[2023-10-06 15:52] LABS: RAPID GROUP A STREP positive (NEGATIVE)
[2023-10-06 15:55] LABS: INFLUENZA TYPE B Negative For Type B (NEGATIVE)
[2023-10-06 16:00] LABS: INFLUENZA TYPE A Positive For Type A (NEGATIVE)
[2023-10-06] MEDS ORDERED: BENZ-39 PO (16:10)
[2023-10-06] MEDS ORDERED: AMOX1TAB16 PO (16:10)
[2023-10-06] MEDS ORDERED: METH4TAB3 PO (16:10)
[2023-10-06] MEDS ORDERED: LIDOCAINE HCL 1% 20 ML VIAL ONE (16:18)
[2023-10-06] MEDS: CEFTRIAXONE 1G VIAL IM ONE (16:20)
[2023-10-06] MEDS: DEXAMETHASONE SOD PHOSPHATE 4 MG/ML 1ML VIAL IM ONE (16:21)
[2023-10-06] MEDS: ACETAMINOPHEN 500 MG TABLET PO ONE (16:22)
== END 2023-10-06 16:33 | disposition home or self-care (01) ==
LOC: EDH 15:15
DX: J20.2 Acute bronchitis due to streptococcus (principal); R05.9 Cough, unspecified; Z20.822 Contact with and (suspected) exposure to COVID-19; Z79.899 Other long term (current) drug therapy
CPT/HCPCS: 99284; 87635; 87880; 87804 ×2; 96372 ×2; J1100; J0696

== ENCOUNTER 2023-10-22 09:53 | Emergency (ER) | payer OTHER ==
[~2023-10-22] VITALS: Ht 167.6 cm; Wt 99.8 kg
[~2023-10-22 09:53] MED LIST changes: +AMOX1TAB16 PO; +BENZ-39 PO; +METH4TAB3 PO
[2023-10-22] MEDS: LIDOCAINE HCL 2% VISCOUS 15 ML UDCUP TP ONE (10:23)
[2023-10-22] MEDS: HYDROCODONE/ACETAMINOPHEN 5/325 MG TAB PO ONE (10:23)
[2023-10-22 11:00] VITALS: BP 129/76; PULSE 77; RESP 17; O2SAT 99
[2023-10-22] MEDS: BACITRACIN 1 EACH PACKET TP ONE (11:27)
== END 2023-10-22 10:55 | disposition home or self-care (01) ==
LOC: EDH 09:53
DX: T23.122A Burn of first degree of single left finger (nail) except thumb, initial encounter (principal); X08.8XXA Exposure to other specified smoke, fire and flames, initial encounter; Y93.89 Activity, other specified; Y92.89 Other specified places as the place of occurrence of the external cause; Y99.8 Other external cause status; Z79.899 Other long term (current) drug therapy
CPT/HCPCS: 16000

== ENCOUNTER 2023-12-24 13:43 | Emergency (ER) | payer OTHER ==
[~2023-12-24] VITALS: Ht 167.6 cm; Wt 98.0 kg
[2023-12-24] MEDS: CEFAZOLIN SODIUM 1 GM VIAL ONE (14:35)
[2023-12-24] MEDS ORDERED: AMOX1TAB16 PO (14:55)
[2023-12-24] MEDS ORDERED: SULF1TAB42 PO (14:55)
[2023-12-24 15:12] VITALS: BP 135/78; PULSE 80; RESP 18; O2SAT 98
== END 2023-12-24 15:15 | disposition home or self-care (01) ==
LOC: EDH 13:43
DX: L02.415 Cutaneous abscess of right lower limb (principal)
CPT/HCPCS: 99284; 10060; 76882; J0690

== ENCOUNTER → 2024-02-26 | Outpatient (CLI) | payer OTHER ==
[~2024-02-26] MED LIST changes: +SULF1TAB42 PO
[2024-02-26 13:11] LABS: BASOPHILS # (AUTO) 0.04 K/uL (0.00-0.20); BASOPHILS % (AUTO) 0.6 % (0.0-5.0); EOSINOPHILS # (AUTO) 0.08 K/uL (0.00-0.70); EOSINOPHILS % (AUTO) 1.1 % (0.0-8.0); HEMATOCRIT 47.9 % (42-54); IMMATURE GRANULOCYTE ABSOLUTE 0.02 K/uL (0-1); LYMPHOCYTES # (AUTO) 2.8 K/uL (1.0-4.8); LYMPHOCYTES % (AUTO) 38.4 % (21.0-51.0); MEAN CORPUSCULAR HEMOGLOBIN 30.7 pg (27.0-33.0); MEAN CORPUSCULAR HGB CONC 33.8 g/dL (32.0-36.0); MEAN CORPUSCULAR VOLUME 90.9 fL (79-99); MONOCYTES # (AUTO) 0.4 K/uL (0.1-1.0); MONOCYTES % (AUTO) 5.1 % (3.0-13.0); NEUTROPHILS # (AUTO) 3.9 K/uL (1.8-7.7); NEUTROPHILS % (AUTO) 54.5 % (40.0-77.0); PLATELET COUNT (AUTO) 284 K/uL (130-400); RED BLOOD CELL COUNT(AUTO) 5.27 MIL/uL (4.50-6.20); RED CELL DISTRIBUTION WIDTH 11.9 % (11.0-15.5); WHITE BLOOD COUNT (AUTO) 7.2 K/uL (4.8-10.8)
[2024-02-26 15:27] LABS: ALBUMIN 4.2 g/dL (3.5-5.0); BILIRUBIN,TOTAL 0.5 mg/dL (0.2-1.0); CREATININE 0.8 mg/dL (0.5-1.3); POTASSIUM 4.1 mmol/L (3.5-5.1); TOTAL PROTEIN, SERUM 8.1 g/dL (6.0-8.3)
== END | disposition home or self-care (01) ==
LOC: LAB 12:16
PROVIDERS: ATTEND Family Medicine
DX: Z13.220 Encounter for screening for lipoid disorders (principal); Z13.89 Encounter for screening for other disorder; Z13.6 Encounter for screening for cardiovascular disorders
CPT/HCPCS: 36415; 80053; 80061; 85025

== ENCOUNTER → 2024-08-15 | Outpatient (CLI) | payer OTHER ==
[~2024-08-15] MED LIST changes: +NAPR-1506 PO; -NAPR500T6 PO
[2024-08-15 09:29] LABS: BASOPHILS # (AUTO) 0.03 K/uL (0.00-0.20); BASOPHILS % (AUTO) 0.4 % (0.0-5.0); EOSINOPHILS # (AUTO) 0.09 K/uL (0.00-0.70); EOSINOPHILS % (AUTO) 1.3 % (0.0-8.0); HEMATOCRIT 47.5 % (42-54); IMMATURE GRANULOCYTE ABSOLUTE 0.01 K/uL (0-1); LYMPHOCYTES # (AUTO) 2.4 K/uL (1.0-4.8); MEAN CORPUSCULAR HEMOGLOBIN 30.4 pg (27.0-33.0); MEAN CORPUSCULAR HGB CONC 32.8 g/dL (32.0-36.0); MEAN CORPUSCULAR VOLUME 92.6 fL (79-99); MONOCYTES # (AUTO) 0.4 K/uL (0.1-1.0); NEUTROPHILS % (AUTO) 58.2 % (40.0-77.0); PLATELET COUNT (AUTO) 274 K/uL (130-400); RED BLOOD CELL COUNT(AUTO) 5.13 MIL/uL (4.50-6.20)
[2024-08-15 09:38] LABS: HEMOGLOBIN A1C 5.9 % (4.0-6.0)
[2024-08-15 09:54] LABS: ALBUMIN 3.9 g/dL (3.5-5.0); BILIRUBIN,TOTAL 0.3 mg/dL (0.2-1.0); CREATININE 0.8 mg/dL (0.5-1.3); POTASSIUM 4.3 mmol/L (3.5-5.1); THYROID STIMULATING HORMONE 1.02 uIU/mL (0.36-3.74); TOTAL PROTEIN, SERUM 7.4 g/dL (6.0-8.3)
== END | disposition home or self-care (01) ==
LOC: LAB 09:04
PROVIDERS: ATTEND Family Medicine
DX: Z13.6 Encounter for screening for cardiovascular disorders (principal); Z13.89 Encounter for screening for other disorder; E11.49 Type 2 diabetes mellitus with other diabetic neurological complication; E78.2 Mixed hyperlipidemia; F52.21 Male erectile disorder
CPT/HCPCS: 36415; 80053; 80061; 83036; 84402; 84403; 84443; 85025; 86140

== ENCOUNTER → 2024-12-10 | Outpatient (CLI) | payer OTHER ==
[2024-12-10 07:13] LABS: HEMATOCRIT 44.3 % (42-54); MEAN CORPUSCULAR HEMOGLOBIN 30.5 pg (27.0-33.0); MEAN CORPUSCULAR HGB CONC 33.6 g/dL (32.0-36.0); MEAN CORPUSCULAR VOLUME 90.8 fL (79-99); PLATELET COUNT (AUTO) 269 K/uL (130-400); RED BLOOD CELL COUNT(AUTO) 4.88 MIL/uL (4.50-6.20); RED CELL DISTRIBUTION WIDTH 12.1 % (11.0-15.5); WHITE BLOOD COUNT (AUTO) 6.9 K/uL (4.8-10.8)
[2024-12-10 07:28] LABS: BILIRUBIN,TOTAL 0.3 mg/dL (0.2-1.0); CREATININE 0.7 mg/dL (0.5-1.3); POTASSIUM 4.3 mmol/L (3.5-5.1); TOTAL PROTEIN, SERUM 7.6 g/dL (6.0-8.3)
[2024-12-10 08:42] LABS: LYMPHOCYTES % (MANUAL) 30 % (22-44); MAN.DIFF COMMENT-IMPRESSION MANUAL DIFFERENTIAL; MONOCYTES % (MANUAL) 4 % (2-9); REACTIVE LYMPHOCYTES 1 % (0-0); SEGMENTED NEUTROPHILS % 65 % (40-70); TOTAL CELLS COUNTED 100
[2024-12-10 08:43] LABS: PLATELET MORPHOLOGY COMMENT ADEQUATE
== END | disposition home or self-care (01) ==
LOC: LAB 07:00
PROVIDERS: ATTEND Family Medicine
DX: E78.2 Mixed hyperlipidemia (principal); R53.83 Other fatigue
CPT/HCPCS: 36415; 80053; 80061; 85025

== ENCOUNTER 2025-02-23 12:28 | Emergency (ER) | payer OTHER ==
[~2025-02-23] VITALS: Ht 167.6 cm; Wt 98.9 kg
[2025-02-23 12:47] LABS: RAPID GROUP A STREP negative (NEGATIVE)
[2025-02-23 12:51] LABS: SARS-CoV-2, RNA, NAAT NEGATIVE SARS CoV-2 (NEGATIVE)
[2025-02-23 12:58] LABS: INFLUENZA TYPE A Negative For Type A (NEGATIVE); INFLUENZA TYPE B Negative For Type B (NEGATIVE)
[2025-02-23 13:52] VITALS: BP 148/84; PULSE 88; RESP 16; TEMP 98.8; O2SAT 95
[2025-02-23] MEDS ORDERED: METH4TAB3 PO (13:52)
[2025-02-23] MEDS ORDERED: AZIT250T9 PO (13:52)
--- NOTE | 2025-02-23 13:52 | ERN ---
General Chief Complaint: Cough Stated Complaint: COUGH, CONGESTION Time Seen by MD: 12:35 Time Seen by Midlevel: 12:35 Source: patient History of Present Illness Initial Comments Patient is a 4-year-old male presenting to the emergency department for evaluation of cough and upper respiratory symptoms that has been ongoing for two days. Symptoms consist of a sore throat and nasal congestion. No other symptoms reported Allergies: Coded Allergies: No Known Drug Allergies (Unverified Allergy, Unknown, 10/06/17) Home Meds Active Scripts Azithromycin (Azithromycin) 250 Mg Tablet, 1 TAB PO AD for 5 Days, #6 TAB 0 Refills 2 the first day followed by 1 for days 2-5 Prov:DELGADO HUNTER 02/23/25 Methylprednisolone (Medrol) 4 Mg Tab.ds.pk, 1 TAB PO AD for 6 Days, #21 TAB 0 Refills 6 on day 1 then reduce by one tablet daily until gone Prov:DELGADO HUNTER 02/23/25 Amoxicillin/Potassium Clav (Amox Tr-K Clv 875-125 mg Tab) 875 Mg-125 Mg Tablet, 1 EACH PO BID for 7 Days, #14 TAB Prov:DARIO FORD MD 12/24/23 Sulfamethoxazole/Trimethoprim (Bactrim Ds Tablet) 800 Mg-160 Mg Tablet, 1 TAB PO BID for 7 Days, #14 TAB Prov:DARIO FORD MD 12/24/23 Amoxicillin/Potassium Clav (Amox Tr-K Clv 875-125 mg Tab) 875 Mg-125 Mg Tablet, 1 EACH PO BID for 7 Days, #14 TAB 0 Refills Prov:ALBANIA WARD NP 10/06/23 Methylprednisolone (Medrol) 4 Mg Tab.ds.pk, 4 MG PO AD, #1 UNIT Prov:ALBANIA WARD NP 10/06/23 Benzonatate (Tessalon Perles) 100 Mg Cap, 100 MG PO AD, #60 CAP Take 2 tablets by mouth every 8 hours as needed cough Prov:ALBANIA WARD NP 10/06/23 Famotidine (Famotidine) 20 Mg Tablet, 20 MG PO BID for 30 Days, #60 TAB Prov:DARIO FORD MD 11/14/21 Naproxen (Naproxen) 500 Mg Tablet.dr, 500 MG PO BID for 7 Days, #14 TAB Prov:DARIO FORD MD 11/14/21 Atorvastatin Calcium (LIPITOR) 20 Mg Tab, 20 MG PO HS for 30 Days, #30 TAB Prov:DARIO FORD MD 11/14/21 Reported Medications Tamsulosin HCl (Tamsulosin HCl) 0.4 Mg Cap.er.24h, 1 CAP PO HS 10/25/17 Past Medical History Past Medical History: No Pertinent History Past Surgical History: None Social History Social History: Negative ROS Dictation CONSTITUTIONAL: Negative except for HPI HEAD/FACE: Negative except for HPI EENT: Negative except for HPI RESPIRATORY: Negative except for HPI GASTROINTESTINAL/ABDOMINAL: Negative except for HPI GENITOURINARY: Negative except for HPI MUSCULOSKELETAL: Negative except for HPI INTEGUMENTARY: Negative except for HPI NEUROLOGICAL/PSYCH: Negative except for HPI HEMATOLOGIC/LYMPHATIC: Negative except for HPI All Systems Negative, Except as noted above. 13 point review of systems assessed and all negative except for above. Physical Exam Physical Exam Dictation Vital Signs reviewed General Appearance: Alert, oriented x 3, no acute distress, well developed, nourished. Head and Face: non-traumatic. Eyes: PERRL, pink conjunctivas, eyelid no trauma, anterior chamber with arcus senilis. Ears: Pinnas intact and no signs of trauma or erythema ear canals clear and no discharge TM no erythema Nose: No discharge, no bleeding. Oropharynx: Mouth normal, tongue pink, pharynx clear,no erythema, tonsils no exudates, no abscesses noted, mucous membrane moist Neck: Supple, non-tender, no thyromegaly, no masses, no JVD, no bruits Breast:Deferred Chest:No tenderness, no crepitus, no paradoxical movement, no retractions Lungs:Clear, well-ventilated, symmetric, no rales, no wheezing, no rhonchi, no stridor, good breath sounds bilaterally Heart: Regular rate, regular rhythm, no murmur, no gallops Vascular: no peripheral edema, Abdomen: Soft, positive bowel sounds, nondistended, no guarding, nontender, no rebound, no masses no hepatomegaly, no splenomegaly, no Gleason's sign, no hernias. Rectal: Deferred Genital: Deferred Neurological: Normal speech, motor function intact, sensory function intact Musculoskeletal: Neck nontender, full range of motion, back nontender, full range of motion, Extremities: nontender, full range of motion Skin: Color pink, dry, no turgor, no rash, no lacerations, no abrasions, no contusions. Lymphatic: Deferred Results Laboratory and Microbiology Lab and Micro Result Laboratory Tests Test 02/23/25 12:33 Influenza Type A Antigen Negative For Type A Influenza Type B Antigen Negative For Type B SARS-CoV-2, RNA, NAAT NEGATIVE SARS CoV-2 Group A Streptococcus Rapid negative (NEGATIVE) Labs Reviewed?: Yes MDM MDM: Differential diagnosis: Viral illness, upper respiratory infection, strep There are no social concerns with this patient. Prescription drug management Prescriptions will include: Azithromycin, Medrol pack Medical management and examination interpretation discussions were had by me with other qualified healthcare professionals as indicated for the patient's care. ED Course Orders Procedure Category Date Status Time Covid Rna Naat LAB 02/23/25 Complete 12:32 Influenza Type A & B, LAB 02/23/25 Complete Rapid 12:32 Rapid (Group A Strep) LAB 02/23/25 Complete 12:32 Ceftriaxone 1g Vial PHA 02/23/25 Complete (Rocephine 1g Inj) 13:30 Dexamethasone 10mg/Ml PHA 02/23/25 Complete 1ml Vial (Dexameth 13:30 Current Medications Medications (Trade) Dose Ordered Sig/Leonie Route PRN Reason Start Time Stop Time Status Last Admin Dose Admin Ceftriaxone Sodium (ROCEphine 1G INJ) 1 gm ONCE ONCE IM 02/23/25 13:30 02/23/25 13:31 DC 02/23/25 13:25 Dexamethasone Sodium Phosphate (dexaMETHasone 10MG/ML 1ML VIAL) 10 mg ONCE ONCE IM 02/23/25 13:30 02/23/25 13:31 DC 02/23/25 13:24 Vital Signs Date Time Temp Pulse Resp B/P (MAP) Pulse Ox O2 Delivery O2 Flow Rate FiO2 02/23/25 13:52 98.8 88 16 148/84 95 Room Air* 0 02/23/25 12:38 98.8 95 16 163/95 95 Room Air* 0 02/23/25 12:29 98.8 98 16 163/95 95 Room Air 0 DX & DISP Disposition: Discharge Departure Impression: Primary Impression: Pharyngitis Additional Impression: Upper respiratory infection Condition: Stable Scripts Azithromycin (Azithromycin) 250 Mg Tablet 1 TAB PO AD for 5 Days, #6 TAB 0 Refills 2 the first day followed by 1 for days 2-5 Prov: DELGADO HUNTER 02/23/25 Methylprednisolone (Medrol) 4 Mg Tab.ds.pk 1 TAB PO AD for 6 Days, #21 TAB 0 Refills 6 on day 1 then reduce by one tablet daily until gone Prov: DELGADO HUNTER 02/23/25 Referrals: ROBB PANDYA MD (PCP) I have reviewed the case, and I agree with, Diagnosis and Plan I performed the substantive portion of the visit. I have reviewed and personally made and approve the management plan that is documented in the note by myself or the AGNES. I acknowledge for responsibility for the patient's management plan. DELGADO HUNTER Feb 23, 2025 13:52
== END 2025-02-23 13:53 | disposition home or self-care (01) ==
LOC: EDH 12:28
DX: J06.9 Acute upper respiratory infection, unspecified (principal); Z20.822 Contact with and (suspected) exposure to COVID-19; Z79.899 Other long term (current) drug therapy
CPT/HCPCS: 99284; 87635; 87880; 87804 ×2; 96372 ×2; J1100; J0696